=== PATIENT | female | born 1945 | race Caucasian/White ===

== ENCOUNTER → 2019-05-18 | Outpatient (CLI) | payer MEDICARE ==
[~2019-05-18] MED LIST: ASPI-496 PO; ASPI81TA45 PO; ATOR-2 PO; CLOP75TA52 PO; DIAZ2TAB3 PO; GABA300C10 PO; HYDR-3240 PO; LEVO88TA4 PO; LISI1TAB20 PO; LOVA40TA2 PO; PANT40TA3 PO; PRAV80TA2 PO; TRIA1TAB3 PO
== END | disposition home or self-care (01) ==
LOC: CVU 08:13
PROVIDERS: ATTEND Surgery
DX: I65.23 Occlusion and stenosis of bilateral carotid arteries (principal); J44.9 Chronic obstructive pulmonary disease, unspecified; I10 Essential (primary) hypertension; E78.5 Hyperlipidemia, unspecified; Z86.73 Personal history of transient ischemic attack (TIA), and cerebral infarction without residual deficits
CPT/HCPCS: 93880